=== PATIENT | female | born 1945 | race Caucasian/White ===

== ENCOUNTER 2021-12-05 15:21 | Inpatient (IN) | payer BC, OTHER ==
[~2021-12-05] VITALS: Ht 182.9 cm; Wt 95.3 kg
[2021-12-05 15:41] VITALS: BP_SYST 138
--- NOTE | 2021-12-05 15:41 | NUR ---
Pt triaged and placed in WR pending MD [place].
--- NOTE | 2021-12-05 15:50 | NUR ---
Pt here from home reporting cough with "mucus and blood" x 3-4 weeks. No cough noted upon face to face assessment. Denies SOB or pain of any kind. Pt noted to be in wheelchair; states she has chronic back pain. Uses cane for balance at home. Alert and oriented x 3 upon face to face assessment. Family waiting with pt in WR.
--- NOTE | 2021-12-05 16:35 | NUR ---
Pt returned to WR via wheelchair from Xray
--- NOTE | 2021-12-05 16:42 | NUR ---
COVID AND INFLUENZA SPECIMENS SENT TO LAB.
--- NOTE | 2021-12-05 18:26 | NUR ---
Swabs and CXR done. Pt pending further MD dispo.
--- NOTE | 2021-12-05 19:07 | NUR ---
Report given to Chitra FRY to assume care of pt
--- NOTE | 2021-12-05 20:04 | NUR ---
Patient to ER bed 08 to gown for evaluation. Side rails up.
[2021-12-05] MEDS ORDERED: NACL 0.9% 1,000 ML IV ONE (20:45)
[2021-12-05 21:41] LABS: PLATELET COUNT (AUTO) 185 K/uL (130-430); WHITE BLOOD COUNT (AUTO) 7.4 K/uL (4.8-10.8)
[2021-12-05] MEDS ORDERED: PIPERACILLIN/TAZO 3.375 GM in NS 50 ML IV ONE (21:45)
[2021-12-05] MEDS ORDERED: VANCOMYCIN HCL 1,000 MG in NS 250 ML IV ONE (21:45)
--- NOTE | 2021-12-05 21:50 | NUR ---
Admit bed requested Patient will be admitted to care of . Admitted to MS unit. Diagnosis PNA,R/O MASS Inpatient (Yes or No) YES Observation (Yes or No) NO Orientation concerns or request close to nursing station (Yes or No) NO Covid Status NEGATIVE On vent or bipap NO Isolation requirements NO Needs a sitter NO From Home (Yes or if No enter name of facility) YES Requires Dialysis (Yes or No) NO Med Rec Completed (Yes of No) PENDING
[2021-12-05 21:51] LABS: BASOPHILS % (AUTO) 0.3 % (0.0-2.0); EOSINOPHILS # (AUTO) 0.1 K/uL (0.0-0.4); EOSINOPHILS % (AUTO) 1.6 % (0.0-4.0); HEMATOCRIT 39.6 % (36-48); HEMOGLOBIN 13.3 g/dL (12.0-16.0); LYMPHOCYTES # (AUTO) 1.8 K/uL (1.0-5.5); LYMPHOCYTES % (AUTO) 24.5 % (20.5-51.5); MEAN CORPUSCULAR HEMOGLOBIN 31 pg (27-31); MEAN CORPUSCULAR HGB CONC 34 % (32-36); MEAN CORPUSCULAR VOLUME 92 fL (79.0-98.0); MONOCYTES # (AUTO) 0.8 K/uL (0.0-1.0); MONOCYTES % (AUTO) 10.3 % (1.7-9.3); NEUTROPHILS # (AUTO) 4.7 K/uL (1.8-7.7); NEUTROPHILS % (AUTO) 63.3 % (40.0-70.0); RED BLOOD CELL COUNT(AUTO) 4.31 MIL/uL (4.2-6.2); RED CELL DISTRIBUTION WIDTH 13.6 % (9.0-15.0)
[2021-12-05 21:54] LABS: ALANINE AMINOTRANSFERASE 13 U/L (12-78); ALBUMIN 3.4 g/dL (3.4-4.8); ANION GAP 10 (5-15); ASPARTATE AMINOTRANSFERASE 17 U/L (10-37); CALCIUM 8.8 mg/dL (8.4-11.0); CHLORIDE 104 mmol/L (98-107); CREATININE 0.83 mg/dL (0.55-1.30); GLUCOSE 149 mg/dL (70-99); POTASSIUM 3.5 mmol/L (3.5-5.1); SODIUM SERUM 139 mmol/L (136-145); TOTAL BILIRUBIN 0.9 mg/dL (0.0-1.0); UREA NITROGEN, BLOOD 17 mg/dL (8-21)
[2021-12-05] MEDS ORDERED: iohexoL 350 mgI/mL, 100 ML INFUS..BTL IV ONE (22:08)
[2021-12-05] MEDS ORDERED: PIPERACILLIN/TAZOBACTAM 3.375 GM/VIAL (ZOSYN) IV ONE (23:30)
--- NOTE | 2021-12-06 00:08 | NUR ---
ADMISSION NOTE Received patient from ER via gurney. Patient admitted with diagnosis of Pneumonia, R/O Mass. Patient is awake, alert, oriented X 4. Patient oriented to hospital room, call light, toileting, pain management and safety-teach back done. Patient informed that ANG Gupta will be primary nurse and that their room number is 116A. Personal belongings checked and Belongings List documented. Call light within reach.
[2021-12-06 00:40] VITALS: BP_SYST 137
--- NOTE | 2021-12-06 01:24 | NUR ---
ADMISSION OF A 76 YEAR OLD FEMALE UNDER DOCTOR PILO LANDIN MD FOR PNEUMONIA AND RULE OUT MASS. PATIENT NOTES 2 WEEKS OF COUGHING UP BLOOD AND PAIN WITH COUGHING. EMILY PELAYO RN
[2021-12-06] MEDS: IPRATROPIUM/ALBUTEROL SULFATE 3 ML AMPUL.NEB (DUONEB) INH SCH ×5 (07:15→23:44)
[2021-12-06 08:05] VITALS: BP_SYST 115
[2021-12-06 11:41] VITALS: BP_SYST 139
[2021-12-06] MEDS ORDERED: KCL 20 mEq in 100 mL (PREMIX) 100 ML IV ONE (13:00)
[2021-12-06 15:38] VITALS: BP_SYST 113
[2021-12-06] MEDS ORDERED: DIATR MEGLU/DIATRIZ SOD 30 ML SOLUTION PO ONE (19:39)
[2021-12-06 21:22] VITALS: BP_SYST 126
[2021-12-07 00:58] VITALS: BP_SYST 110
[2021-12-07] MEDS: IPRATROPIUM/ALBUTEROL SULFATE 3 ML AMPUL.NEB (DUONEB) INH SCH ×6 (03:07→22:42)
[2021-12-07 07:27] LABS: INR 1.1 (0.8-1.2); PROTHROMBIN TIME 10.7 SECS (9.5-12.5)
[2021-12-07 08:00] VITALS: BP_SYST 125
--- NOTE | 2021-12-07 08:00 | NUR ---
Initial Notes Patient is AOx4. Ambulatory with walker. No s/s of distress. Patient denies any pain. Patient does have a cough, with some blood. Patient states cough comes and goes. Vital signs within range. Breathing is even and non labored on room air. Patient aware to call for assistance when in need. Safety precautions in place and call light within reach.
--- NOTE | 2021-12-07 10:00 | NUR ---
Notes Prior IV was out. New IV located on Left antecubital 20G.
[2021-12-07] MEDS: BISACODYL 5 MG TABLET.DR (DULCOLAX) PO PRN (10:38)
[2021-12-07 12:00] VITALS: BP_SYST 124
--- NOTE | 2021-12-07 12:00 | NUR ---
Notes Patient has been cleaned, lines have been changed. No s/s of distress. Patient denies any pain. Patient is eating lunch at this time. Safety precautions in place and call light within reach. Family at bedside.
[2021-12-07 16:00] VITALS: BP_SYST 135
--- NOTE | 2021-12-07 16:00 | NUR ---
NOTES PATIENT IS TALKING WITH FAMILY. DENIES ANY PAIN. NO DISTRESS NOTED. CALL LIGHT WITHIN REACH AND SAFETY PRECAUTIONS IN PLACE.
--- NOTE | 2021-12-07 18:44 | NUR ---
CLOSING NOTES PATIENT IS AWAKE AND EATING DINNER. DENIES ANY PAIN. NO DISTRESS NOTED. ALL NEEDS MET, PATIENT IS STABLE. SAFETY PRECAUTIONS IN PLACE AND CALL LIGHT WITHIN REACH. FAMILY AT BEDSIDE.
--- NOTE | 2021-12-07 19:15 | NUR ---
OPENING NOTE REPORT RECEIVED FROM DAYSHIFT NURSE. PATIENT RECEIVED LYING IN BED, AWAKE, ALERT, NO S/S OF ACUTE DISTRESS, DENIES PAIN. BREATHING IS EVEN AND UNLABORED. IV SITE IS PATENT, NO SIGNS OF INFILTRATION OR INFECTION NOTED. ALL NEEDS MET THROUGHOUT SHIFT. FALL AND SAFETY PRECAUTIONS MAINTAINED THROUGHOUT SHIFT. WILL CONTINUE TO MONITOR UNTIL PATIENT CARE IS ENDORSED TO ONCOMING DAYSHIFT NURSE.
[2021-12-07 20:00] VITALS: BP_SYST 123
[2021-12-08] VITALS: BP_SYST 118
[2021-12-08] MEDS: IPRATROPIUM/ALBUTEROL SULFATE 3 ML AMPUL.NEB (DUONEB) INH SCH ×5 (03:00→23:45)
--- NOTE | 2021-12-08 06:17 | NUR ---
CLOSING NOTE PATIENT IN BED, RESTING. NO S/S OF ACUTE DISTRESS. BREATHING IS EVEN AND UNLABORED. IV SITE PATENT, NO SIGNS OF INFILTRATION OR INFECTION NOTED. ALL NEEDS MET THROUGHOUT SHIFT. FALL AND SAFETY PRECAUTIONS MAINTAINED THROUGHOUT SHIFT. WILL CONTINUE TO MONITOR UNTIL PATIENT CARE IS ENDORSED TO ONCOMING DAYSHIFT NURSE.
[2021-12-08 08:24] LABS: BASOPHILS % (AUTO) 0.3 % (0.0-2.0); EOSINOPHILS # (AUTO) 0.2 K/uL (0.0-0.4); EOSINOPHILS % (AUTO) 2.6 % (0.0-4.0); HEMATOCRIT 38.6 % (36-48); HEMOGLOBIN 13.1 g/dL (12.0-16.0); LYMPHOCYTES # (AUTO) 1.4 K/uL (1.0-5.5); LYMPHOCYTES % (AUTO) 20.9 % (20.5-51.5); MEAN CORPUSCULAR HEMOGLOBIN 31 pg (27-31); MEAN CORPUSCULAR HGB CONC 34 % (32-36); MEAN CORPUSCULAR VOLUME 92 fL (79.0-98.0); MONOCYTES # (AUTO) 0.7 K/uL (0.0-1.0); MONOCYTES % (AUTO) 10.2 % (1.7-9.3); NEUTROPHILS # (AUTO) 4.4 K/uL (1.8-7.7); PLATELET COUNT (AUTO) 176 K/uL (130-430); RED CELL DISTRIBUTION WIDTH 13.7 % (9.0-15.0); WHITE BLOOD COUNT (AUTO) 6.7 K/uL (4.8-10.8)
[2021-12-08 08:54] LABS: ANION GAP 6 (5-15); CALCIUM 8.9 mg/dL (8.4-11.0); CHLORIDE 105 mmol/L (98-107); CREATININE 0.75 mg/dL (0.55-1.30); GLUCOSE 96 mg/dL (70-99); POTASSIUM 3.9 mmol/L (3.5-5.1); SODIUM SERUM 139 mmol/L (136-145); UREA NITROGEN, BLOOD 12 mg/dL (8-21)
[2021-12-08 09:03] LABS: PROTHROMBIN TIME 10.6 SECS (9.5-12.5)
[2021-12-08 09:37] VITALS: BP_SYST 133
[2021-12-08] MEDS: BISACODYL 5 MG TABLET.DR (DULCOLAX) PO PRN (11:02)
[2021-12-08 13:50] VITALS: BP_SYST 130
[2021-12-08 17:00] VITALS: BP_SYST 122
--- NOTE | 2021-12-08 19:33 | NUR ---
PATIENT CARE LATE ENTRY DUE TO PT CARE 0900; ASSUMED CARE FROM DANNY FRY. PATIENT APPEARS COMFORTABLE. DENIES SHORTNESS OF BREATH 11:00- SPUTUM SENT FOR AF[employer] 12:00- IV ON THE LEFT AC INFILTRATED. IVCE PACKS APPLIED TO SITE. NEW IV STARTED ON RT FA 22G X 1 ATTEMPT 1800- COMFORTABLE AT THIS TIME. PATIENT TOOK SHOWER
--- NOTE | 2021-12-08 19:45 | NUR ---
ROUNDS PATIENT RESTING COMFORTABLY IN BED, WATCHING TV, VITALS STABLE, DENIES PAIN AT THIS TIME. ASSESSMENT DONE AND DOCUMENTED. SEE FLOWSHEET. NEEDS ATTENDED TO. CALL LIGHT PLACED WITHIN REACH.
[2021-12-08 20:00] VITALS: BP_SYST 123
[2021-12-09] VITALS: BP_SYST 113
--- NOTE | 2021-12-09 00:15 | NUR ---
PATIENT RESTING: Patient resting quietly. No acute distress noted. Vital signs within normal range.
[2021-12-09] MEDS: IPRATROPIUM/ALBUTEROL SULFATE 3 ML AMPUL.NEB (DUONEB) INH SCH ×6 (03:00→23:20)
--- NOTE | 2021-12-09 06:20 | NUR ---
LAB SUBMITTED PATIENT'S SPUTUM FOR AF[employer] SMEAR TO THE LAB.
[2021-12-09 08:00] VITALS: BP_SYST 124
--- NOTE | 2021-12-09 08:00 | NUR ---
OPENING NOTES: PATIENT RESTING IN BED. BREATHING EVEN AND NON LABORED TO RA. IV INFUSING WELL.VEE CATHETER IN PLACED AND DRAINING BY GRAVITY . CALL LIGHT WITHIN REACH.
[2021-12-09 09:14] VITALS: BP_SYST 113
[2021-12-09 12:00] VITALS: BP_SYST 118
--- NOTE | 2021-12-09 19:25 | NUR ---
CLOSING NOTES: PATIENT RESTING IN BED. NO S/S OF ACUTE DISTRESS NOTED. NEEDS MET THROUGHOUT SHIFT. ENDORSED TO SPEECH WRITER RN.
[2021-12-09 20:00] VITALS: BP_SYST 108
[2021-12-10 02:00] VITALS: BP_SYST 108
[2021-12-10] MEDS: IPRATROPIUM/ALBUTEROL SULFATE 3 ML AMPUL.NEB (DUONEB) INH SCH ×6 (03:20→23:14)
[2021-12-10 08:00] VITALS: BP_SYST 123
--- NOTE | 2021-12-10 11:01 | NUR ---
called [facility] in [facility] , no bed available , no admissions at this time.
[2021-12-10 15:00] VITALS: BP_SYST 122
--- NOTE | 2021-12-10 15:06 | NUR ---
need order for outpatient biopsy with IR
[2021-12-10] MEDS ORDERED: LEVO250T43 PO (15:33)
[2021-12-10] MEDS ORDERED: BISA-79 PO (15:33)
--- NOTE | 2021-12-10 18:00 | NUR ---
PT DENIES ANY FURTHER HEMOPTYSIS THUS FAR. RESPIRATIONS EVEN ET UNLABORED. PT IS ON BREATHING TREATMENTS. PT HAS BEEN UP AMBULATING IN ROOM WITHOUT COMPLAINTS. PT'S FAMILY HAS BEEN AT THE BEDSIDE THROUGHOUT THE SHIFT TO OFFER SUPPORT. NO S/S ACUTE DISTRESS NOTED.
[2021-12-10 20:30] VITALS: BP_SYST 126
--- NOTE | 2021-12-10 21:01 | NUR ---
RECEIVED PT WALKING BACK FROM BATHROOM. NO DISTRESS NOTED, DENIES PAIN, GAIT STEADY. PT WITH DRY COUGH, NO RECENT BLOODY SPUTUM. MIDLINE TO LT FA SITE CDI. REDNESS NOTED TO RT WRIST.
[2021-12-11 01:30] VITALS: BP_SYST 103
[2021-12-11] MEDS: IPRATROPIUM/ALBUTEROL SULFATE 3 ML AMPUL.NEB (DUONEB) INH SCH ×3 (03:00→11:49)
--- NOTE | 2021-12-11 12:36 | NUR ---
IR APPOINTMENT S/W WITH NEMO ASHRAF WHO STATED THAT PATIENT WILL RECEIVE A PHONE CALL FROM HER TEAM ONCE SCHEDULE FOR IR BIOPSY AND AN AUTHORIZATION BY MAIL FOR SAID PROCEDURE
[2021-12-11 13:38] VITALS: BP_SYST 105
--- NOTE | 2021-12-11 14:30 | NUR ---
D/C Patient Patient given medication reconciliation form and D/C instructions. Exit Care provided. Patient verbalized understanding. MD discussed with patient the results and treatment provided. Ambulatory with steady gait for discharge to home. Patient in stable condition, ID band removed. MIDLINE catheter removed, intact and dressing applied, no active bleeding. Patient educated on pain management. All belongings sent with patient.
== END 2021-12-11 14:20 | disposition home or self-care (01) | DRG 181 ==
LOC: SED 15:21 → SMU 21:49
PROVIDERS: ADMIT Internal Medicine; ATTEND Internal Medicine
PROC: 05HY33Z Insertion of Infusion Device into Upper Vein, Percutaneous Approach (ICD-10-PCS; principal; 2021-12-10)
PROC: B54NZZA Ultrasonography of Left Upper Extremity Veins, Guidance (ICD-10-PCS; 2021-12-10)
DX: C34.90 Malignant neoplasm of unspecified part of unspecified bronchus or lung (principal); E44.1 Mild protein-calorie malnutrition; R91.8 Other nonspecific abnormal finding of lung field; R59.0 Localized enlarged lymph nodes; Z20.822 Contact with and (suspected) exposure to COVID-19; E66.9 Obesity, unspecified; Z68.28 Body mass index [BMI] 28.0-28.9, adult
CPT/HCPCS: 36415; 71045; 71275; 76376; 80048; 80053; 83605; 85025; 85610-TC; 85730-TC; 86480; 87040; 87070-TC; 87116; 87205-TC; 93005; 94640; 94760; 96361; 96365; 99285; J1956; J2543; Q9964; Q9967